=== PATIENT | female | born 1945 | race Caucasian/White ===

== ENCOUNTER 2017-07-24 14:33 | Outpatient (CLI) | payer MEDICARE | END 2017-07-24 14:34 | disposition home or self-care (01) | LOC: BICMAMMO 14:33 | PROVIDERS: ATTEND Family Medicine | DX: Z12.31 Encounter for screening mammogram for malignant neoplasm of breast (principal); R92.1 Mammographic calcification found on diagnostic imaging of breast | CPT/HCPCS: 77063; 77067 ==

== ENCOUNTER 2017-08-19 18:40 | Observation (INO) | payer MEDICARE, OTHER ==
[2017-08-19 19:44] LABS: #Basophils 0.1 thou/uL (0.0-0.2); #Eosinphils 0.1 thou/uL (0.0-0.7); #Lymphocytes 1.5 thou/uL (1.20-3.40); #Monocytes 0.6 thou/uL (0.11-0.59); #Neutrophils 3.5 thou/uL (1.40-6.50); %Basophils 1.4 % (0.0-1.0); %Eosinophils 2.4 % (0.0-10.0); %Lymphocytes 25.6 % (21.0-51.0); %Monocytes 9.8 % (0.0-10.0); %Neutrophils 60.8 % (42.0-75.0); Albumin 4.3 g/dL (3.4-4.8); Calcium 9.3 mg/dL (7.8-10.44); Chloride 103 mmol/L (98-107); Globulin 3.9 g/dL (2.4-3.5); Glucose 195 mg/dL (80-115); Hemoglobin 15.3 g/dL (12.0-16.0); Mean Corpuscular HGB CONC 34.6 g/dL (32.0-36.0); Mean Corpuscular Hemoglobin 32.3 pg (27.0-31.0); Mean Corpuscular Volume 93.5 fL (78.0-98.0); Mean Platelet Volume 7.8 fL (7.4-10.4); Platelet Count 174 thou/uL (130-400); Potassium 3.5 mmol/L (3.5-5.1); Protein, Total 8.2 g/dL (6.0-8.3); RBC Distribution Width 12.9 % (11.5-14.5); Red Blood Cell (RBC) Count 4.73 mill/uL (4.20-5.40); Sodium 140 mmol/L (136-145); White Blood Cell (WBC) Count 5.8 thou/uL (4.8-10.8)
[2017-08-19 19:45] LABS: Anion Gap 17 mmol/L (10-20); Bilirubin, Total 0.5 mg/dL (0.2-1.2); Carbon Dioxide 24 mmol/L (23-31)
[2017-08-19 19:46] LABS: Alkaline Phosphatase 72 U/L (40-150)
[2017-08-19 19:47] LABS: BUN (Urea Nitrogen) 13 mg/dL (9.8-20.1); Calc. Creatinine Clearance 0 mL/min (70-130); Estimated GFR-MDRD 64
[2017-08-19 19:48] LABS: AST (SGOT) 37 U/L (5-34)
[2017-08-19 19:49] LABS: ALT (SGPT) 33 U/L (8-55)
[2017-08-19 19:53] LABS: Troponin I Less than 0.010 ng/mL (< 0.028)
[2017-08-19 19:56] LABS: CK (CPK) 39 U/L (29-168)
--- NOTE | 2017-08-19 20:18 | CT ---
CT BRAIN NONCONTRAST: DATE: 08/19/17 TIME: 7:58 p.m. HISTORY: 72-year-old female with episode of expressive aphasia, now completely resolved. Dr. Jmaes discussed the findings and recommendation by telephone with Dr. Palomino at 8:06 p.m. on 08/19. COMPARISON: None. FINDINGS: There is an approximately 4 x 4 cm region of cerebral edema in the left frontal lobe laterally, just superior to the level of the anterior aspect of the Sylvian fissure. There is local effacement of sul ci in the region of this edema, but otherwise no mass effect elsewhere, and no midline shift. The nessa tricles are normal in size and configuration. No acute intra-axial or extra-axial hemorrhage. The dg varium is intact. The upper portions of the paranasal sinuses and the bilateral tympanomastoid caviti es are grossly clear. IMPRESSION: 1. Left frontal lobe intra-axial edema. This is favored to represent vasogenic edema (probably f rom a neoplasm and less commonly from cerebral infection). It is less likely to represent cytotoxic e wilman of an infarction. 2. Recommend MRI of the brain with and without contrast for further evaluation. Code MARBELLA JN R POS: [facility]
[2017-08-19 21:57] LABS: PTT 30.9 SEC (22.9-36.1)
--- NOTE | 2017-08-19 23:23 | PDOC.FPRHP ---
- History of Present Illness Chief Complaint: trouble finding words History of Present Illness: Resident: Lori Velasco DO PCP: Dr. Lynda Azar MD Patient is a 72yo F with PMH of HLD and recent elevated BP in the clinic presents to ED for expressive aphasia that happened at home after dinner around 1814. The patient reports she was sitting down at the table having a conversation with son and friend and all of the sudden wasn't able to find the words she wanted to say and instead her mouth just made sounds that didn't make sense. She knew what she wanted to say but could not find the words or even form the words. The event lasted maybe a couple of minutes and then resolved. There was no associated weakness, slurred speech, or facial asymmetry. She reports small episodes like this have happened in the past but were more confined to the ability to find the word to name an object. Never has she had jumbled sounds that didn't sound like words before. She has no hx of CAD or TIA /CVA. She has been recently worked up for HTN with at least 2 isolated elevated readings in the office. She has past history of HLD, in which she takes red yeast rice for. She has gained about 15lbs in the last 6 months due to lack of exercise. She reports recent URI sx but otherwise feels well. In the ED a CTbrain was performed which shows 4x4cm area of frontal lobe edema, suspicious for neoplasm vs infection. She denies mood changes, weakness, stiffened neck, vision changes. She recently had a mammogram done that showed Birads 2 and has never had colonoscopy. Upon arrival to the ED, no sx were noticed, although during my interview, patient did have about a 30sec-1min time of the above described expressive aphasia. ED Course: She did not receive any meds in the ED. - Allergies/Adverse Reactions Allergies Allergy/AdvReac Type Severity Reaction Status Date / Time No Known Drug Allergies Allergy Verified 08/19/17 23:31 - Home Medications Medication Instructions Recorded Confirmed Type Dexamethasone [Decadron] 4 mg PO BID #60 tab 08/20/17 Rx - History PMHx: HLD Tobacco Abuse Elevated BP without the diagnosis of HTN PSHx: none FHx: father CVA at age 80, mother CVA at age 95 Social: Drinks socially about 1 glass of scotch 3x/week, smokes 1-2ppd for the last 50years, denies drug use. - Review of Systems General: reports: weight/appetite/sleep changes (weight gain of 15lbs). denies : fever/chills Eyes: denies: eye pain, vision changes ENT: denies: nasal congestion, rhinorrhea Respiratory: reports: cough. denies: congestion, shortness of breath, exercise intolerance Cardiovascular: denies: chest pain, palpitation, edema Gastrointestinal: denies: nausea, vomiting, diarrhea, constipation, abdominal pain Genitourinary: denies: incontinence, dysuria Skin: denies: rashes, lesions Musculoskeletal: denies: pain, tenderness Neurological: denies: numbness, syncope Psychological: denies: anxiety, depression - Vital signs BP: 145/63 HR: 94 RR: 22 Tmax: 98.7 Pox: 95% on RA Wt: 79kg - Physical Exam Constitutional: NAD, awake, alert and oriented, well developed HEENT: normocephalic and atraumatic, PERRLA, EOMI, conjunctiva clear, no scleral icterus, grossly normal vision, TM's clear and intact, grossly normal hearing, normal nasal mucosa, MMM, oropharynx clear, good dention Neck: supple, FROM, trachea midline, no bruits -Neck: enlarged R anterior lymphnode, no nuchal rigidity Heart: normal S1/S2, no murmurs/rubs/gallops -Heart: tachycardic Lungs: CTAB, no respiratory distress, no wheezing -Lungs: distant lung sounds throughout, poor respiratory effort Abdomen: soft, non-tender, bowel sounds present Musculoskeletal: normal structure, normal tone, ROM grossly normal Neurological: no focal deficit, CN II-XII intact, normal sensation, DTRs 2+ -Neurological: no dysdiadochokinesia Skin: no rash/lesions, capillary refill <2 seconds Heme/Lymphatic: no unusual bruising or bleeding Psychiatric: normal mood and affect, intact recent and remote memory FMR H&P: Results - Labs Result Diagrams: 08/19/17 19:20 08/19/17 19:20 Lab results: WBC 5.8 thou/uL (4.8-10.8) 08/19/17 19:20 Hgb 15.3 g/dL (12.0-16.0) 08/19/17 19:20 Hct 44.3 % (36.0-47.0) 08/19/17 19:20 MCV 93.5 fL (78.0-98.0) 08/19/17 19:20 Plt Count 174 thou/uL (130-400) 08/19/17 19:20 Neutrophils % 60.8 % (42.0-75.0) 08/19/17 19:20 Sodium 140 mmol/L (136-145) 08/19/17 19:20 Potassium 3.5 mmol/L (3.5-5.1) 08/19/17 19:20 Chloride 103 mmol/L (98-107) 08/19/17 19:20 Carbon Dioxide 24 mmol/L (23-31) 08/19/17 19:20 BUN 13 mg/dL (9.8-20.1) 08/19/17 19:20 Creatinine 0.88 mg/dL (0.6-1.1) 08/19/17 19:20 Glucose 195 mg/dL (80-115) H 08/19/17 19:20 Calcium 9.3 mg/dL (7.8-10.44) 08/19/17 19:20 Total Bilirubin 0.5 mg/dL (0.2-1.2) 08/19/17 19:20 AST 37 U/L (5-34) H 08/19/17 19:20 ALT 33 U/L (8-55) 08/19/17 19:20 Alkaline Phosphatase 72 U/L (40-150) 08/19/17 19:20 Creatine Kinase 39 U/L (29-168) 08/19/17 19:20 CK-MB (CK-2) 1.0 ng/mL (0-6.6) 08/19/17 19:20 Serum Total Protein 8.2 g/dL (6.0-8.3) 08/19/17 19:20 Albumin 4.3 g/dL (3.4-4.8) 08/19/17 19:20 - EKG Interpretation EKG: partial RBBB, sinus tachycardia with rate of 105 - Radiology Interpretation CT scan - head Status: image reviewed by me, report reviewed by me Additional comment: 4x4 area of frontal lobe edema, abscess vs malignancy FMR H&P: A/P - Problem List (1) Abnormal finding on CT scan Status: Acute Code(s): R93.8 - ABNORMAL FINDINGS ON DIAGNOSTIC IMAGING OF BODY STRUCTURES (2) Expressive aphasia Status: Acute Code(s): R47.01 - APHASIA (3) Hyperlipidemia Status: Acute Code(s): E78.5 - HYPERLIPIDEMIA, UNSPECIFIED (4) Elevated glucose Status: Acute Code(s): R73.09 - OTHER ABNORMAL GLUCOSE (5) Tobacco abuse Status: Acute Code(s): Z72.0 - TOBACCO USE (6) Hypertension Status: Acute Code(s): I10 - ESSENTIAL (PRIMARY) HYPERTENSION - Plan Abnormal Finding on CT - per radiologist read is highly suspicious of malignancy vs an infectious etiology such as abscess. Patient has no s/sx of infection. Patient has had negative recent mammogram, but no colonoscopy. - MRI brain to further qualify Broca's Aphasia - likely caused by finding on CT, but could be TIA with multiple risk factors including obesity, HLD (untreated), HTN, and tobacco use. - allow for permissive HTN for 24h - NIH/neuro checks - CTA of head and neck - Risk stratify with FLP, A1c, TSH Elevated Blood Glucose - A1c as above HTN - new diagnosis, this is the third isolated reading of elevated pressures. - will allow for permissive HTN for 24h, but then will likely need to start medication for control Lymphadenopathy - R neck lymph node probably measuring about 2-3cm in diameter - soft tissue neck u/s pending in light of above CT finding HLD - FLP pending - will calculate ASCVD risk at that time, likely will need statin Tobacco Abuse - 50-100 pack year hx - encourage cessation - provide nicotine patch prn VTE PPx: SCD Code Status: Full Dispo: <48h FMR H&P: Upper Level - Pertinent history PCP: Dr. Azar Pt is a very pleasant 72 yo F with hx of hld and recent dx of htn who presents to ED with 1 day hx of difficulty with word finding. She states that she can think of what she wants to say but at times stutters, cannot form words properly. She has no cardiac hx or hx of CVA. Family hx of CVA in her father in his 80s, mother lived to be 95. Also endorse cough and exposure to her grandchildren who have had a cold. Endorses intermittent RUQ pain that she discussed with Dr. Azar but it has not been worked up yet. Also endorses recent failure of her vision screen at the [facility], has yet to see optometry. Denies fever, chills, weight loss, meningeal signs, difficulty walking, changes in mood/personality, changes in bowel/bladder habits, incontinence. Also endorses recently had a mammogram, results not known. Has never had a colonoscopy. Denies bowel symptoms. - Pertinent findings General: AOx3, overweight, no distress HEENT: TMs pearly diaz, EOMI, PERRL, no exudate, large R submandibular lymph node Cards: RRR Lungs: CTA Abdomen: no TTP, normoactive bs neuro: CN II-XII intact, normal finger to nose, normal sensation, hyporeflexive 1+ but patient tensing, patellar, brachial - Plan Date/Time: 08/19/17 1368 I, Lauren Washington, have evaluated this patient and agree with findings/plan as outlined by Dr. Velasco. Pertinent changes/additions are listed here. 1. 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 Cannot r/o brain abscess w/o MRI though seems less likely given lack of illness symptoms, fever, WBC. MRI in AM. More likely related to a tumor, primary or met. Recent mammogram BIRADS 2, no hx of colonoscopy. Will allow permissive htn for 24 hrs as cannot r/o CVA/TIA. Neuro checks q 4 hrs. Risk stratify with labs CBC, CMP, Mg, Phos, TSH, A1c. Give asa. 2. RUQ pain- could order u/s, not urgent could be done outpatient 3. htn-will need to start agents after period of permissive htn 4. hld-takes red yeast rice, likely will need to switch to statin Attending Addendum - Attending Addendum Date/Time: 08/20/17 1030 I personally evaluated the patient and discussed the management with Dr. Velasco/ Felix. I agree with the History, Examination, Assessment and Plan documented above with any addition or exceptions noted below.
[2017-08-19] MEDS ORDERED: Acetaminophen 325 MG TAB PO PRN (23:36)
[2017-08-19] MEDS ORDERED: Ondansetron HCl/PF 4 MG/2 ML Vial IVP PRN (23:36)
[2017-08-19] MEDS ORDERED: Ondansetron ODT 4 MG TAB SL PRN (23:36)
[2017-08-19 23:45] LABS: Troponin I Less than 0.010 ng/mL (< 0.028)
[2017-08-20 00:06] VITALS: BMI 27.6
[2017-08-20] MEDS ORDERED: Acetaminophen 325 MG TAB PO PRN (00:08)
[2017-08-20] MEDS ORDERED: Nicotine 14 MG PATCH TD PRN (00:08)
[2017-08-20] MEDS ORDERED: Docusate 100 MG CAP PO PRN (00:08)
[2017-08-20] MEDS ORDERED: Ondansetron ODT 4 MG TAB PO PRN (00:08)
[2017-08-20] MEDS ORDERED: hydrALAZINE 20 MG/ML VIAL SLOW IVP PRN (01:22)
--- NOTE | 2017-08-20 04:30 | PDOC.EVN ---
Event Note - Event Note Event Note: Date/Time: 08/20/17 0427 I personally evaluated the patient and discussed the management with Dr. Velasco. I agree with the History, Examination, Assessment and Plan. See H&P. COPD vs Asthma vs environemtnal inflammaotry response. Eosinophilia suggests allergy exposure mediated etiology. Will discuss with pulmonology.
[2017-08-20 05:20] LABS: Hemoglobin A1c 5.6 % (4.0-6.0)
[2017-08-20 05:37] LABS: Cardiac Risk 4.7 (Less than 4.5)
[2017-08-20] MEDS ORDERED: Aspirin 81 mg Enteric Coated Tablet PO SCH (09:00)
--- NOTE | 2017-08-20 09:06 | PDOC.FM ---
- Subjective Subjective: Ms. Wheeler is feeling well this morning. She has an appetite. She denies any concerns for new focal findings or weakness, vision changes or further word finding difficulty apart from episode with Dr. Velasco present. - Objective MAR Reviewed: Yes Vital Signs & Weight: Vital Signs (12 hours) Temp Pulse Resp BP Pulse Ox 08/20/17 07:46 98.4 F 77 16 154/71 H 97 08/20/17 03:54 99.1 F 86 20 169/79 H 92 L 08/20/17 00:00 97.8 F 91 20 166/88 H 93 L 08/19/17 23:40 97.8 F 91 20 Weight Weight 77.655 kg I&O: 08/19/17 08/20/17 08/21/17 06:59 06:59 06:59 Intake Total 700 Balance 700 Result Diagrams: 08/19/17 19:20 08/19/17 19:20 EKG Reviewed by me: Yes Radiology Reviewed by me: Yes Phys Exam - Physical Examination Constitutional: NAD HEENT: moist MMs, sclera anicteric Neck: supple palpable LN on R anterior cervical chain Respiratory: no wheezing, clear to auscultation bilateral Cardiovascular: RRR, no significant murmur Gastrointestinal: soft, non-tender, positive bowel sounds Musculoskeletal: no edema Neurological: non-focal, moves all [address] Psychiatric: normal affect, A&O x 3 Skin: normal turgor Dx/Plan (1) Abnormal finding on CT scan Code(s): R93.8 - ABNORMAL FINDINGS ON DIAGNOSTIC IMAGING OF BODY STRUCTURES Status: Acute (2) Elevated glucose Code(s): R73.09 - OTHER ABNORMAL GLUCOSE Status: Acute (3) Expressive aphasia Code(s): R47.01 - APHASIA Status: Acute (4) Hyperlipidemia Code(s): E78.5 - HYPERLIPIDEMIA, UNSPECIFIED Status: Acute (5) Hypertension Code(s): I10 - ESSENTIAL (PRIMARY) HYPERTENSION Status: Acute (6) Tobacco abuse Code(s): Z72.0 - TOBACCO USE Status: Acute - Plan Plan: Abnormal Finding on CT 1. Per radiologist read is highly suspicious of malignancy vs an infectious etiology such as abscess. Patient has no s/sx of infection. Patient has had negative recent mammogram, but no colonoscopy. - MRI brain to further qualify - Dr. Miranda consulted 2. Broca's Aphasia - likely related to finding on CT, but could be TIA with multiple risk factors including obesity, HLD (untreated), HTN, and tobacco use. - allow for permissive HTN for 24h - NIH/neuro checks - CTA of head and neck - Risk stratify with FLP, A1c, TSH 3. Elevated Blood Glucose - A1c 5.6 4. HTN - new diagnosis, this is the third isolated reading of elevated pressures. - will allow for permissive HTN for 24h, but then will likely need to start medication for control 5. Lymphadenopathy - R neck lymph node probably measuring about 2-3cm in diameter - soft tissue neck u/s pending in light of above CT finding 6. HLD - ASCVD risk > 10%, recommend moderate to high intensity statin 7. Tobacco Abuse - 50-100 pack year hx - encourage cessation - provide nicotine patch prn VTE PPx: SCD Code Status: Full
[2017-08-20] MEDS ORDERED: Lorazepam 2 MG/ML VIAL ONE (09:39)
[2017-08-20] MEDS ORDERED: Lorazepam 2 MG/ML VIAL SLOW IVP SCH (10:15)
[2017-08-20] MEDS ORDERED: Iopamidol 370 76% 100 ML VIAL ONE (10:58)
[2017-08-20] MEDS ORDERED: Gadobenate Dimeglumine 529 MG/1 ML (20ML VIAL) ONE (11:27)
--- NOTE | 2017-08-20 11:54 | MRI ---
BRAIN MRI WITH AND WITHOUT CONTRAST: Date: 08-20-17 Comparison: None. History: Head CT performed 08-19-17 demonstrates left frontal lobe lesion. Technique: Multiplanar, multisequence MR imaging of the brain obtained with and without contrast. FINDINGS: Diffusion weighted imaging demonstrates no evidence for acute infarction. The axial gradient echo adrian ging demonstrates no evidence for intracranial hemorrhage. There is a prominent left frontal lobe intraaxial lesion with coarse internal enhancement as well as prominent peripheral rim enhancement which measures in the 2.1 x 2.4 cm range. There is significant s urrounding vasogenic edema. There is an additional satellite rim enhancing lesion posterior to this, also within the left frontal lobe measuring 8 mm with associated surrounding vasogenic edema. In emely tion, there is a lesion within the posterior aspect of the centrum semiovale on the right measuring 1 .2 cm with rim enhancement and surrounding vasogenic edema. There is minimal right to left midline sh ift measuring in the 2 mm range at the level of the septum pellucidum. No additional enhancing lesions are identified within the left cerebral hemisphere. No enhancing lesions are identified within the posterior fossa, brain stem, or right cerebral hemisph ere. The area of vasogenic edema surrounding the two adjacent anterolateral right frontal lobe lesions jan sures 4.3 x 4.6 cm in the area of vasogenic edema associated with the lesion within the posterior asp ect of the left posterior centrum semiovale measures in the 1.8 cm range. IMPRESSION: 1. Multiple intraaxial lesions are noted, highly suspicious for intraaxial intracranial metastatic di sease. POS: [facility]
--- NOTE | 2017-08-20 13:49 | CT ---
CT ANGIOGRAM OF THE HEAD CT ANGIOGRAM OF THE NECK: Date: 08-20-17 Comparison: None. History: Possible transient ischemic attack, intracranial lesions on recent brain MRI, memory problem s. Technique: Serial axial CT imaging obtained at 5 mm intervals through the head without contrast. Subs equently, axial CT imaging at 1.25 mm intervals from lung apices through vertex with IV contrast usin g a CT angiogram protocol. Coronal and sagittal 3D reformatted imaging obtained. FINDINGS: Noncontrast enhanced head CT demonstrates focal areas of vasogenic edema in the left centrum semioval e and the inferior lateral aspect of the left frontal lobe, associated with enhancing intracranial ma ss lesions seen on brain MRI, also performed 08-20-17. No intracranial hemorrhage is noted. There is m ild midline shift from left to right measuring in the 2 mm range. Imaged paranasal sinuses/mastoid ai r cells are well aerated. CT ANGIOGRAM NECK: The visualized lung apices are unremarkable aside from subpleural emphysematous change within superio r segment of bilateral lower lobes. The retroantral and the parapharyngeal fat appears clear bilaterally. The parotid glands and submandi bular glands appear grossly unremarkable. The tonsillar pillars, epiglottis and preepiglottic fat, hy oid bone, thyroid cartilage, cricoid cartilage, thyroid gland and level of the glottis appear grossly unremarkable. There is mild atherosclerotic calcification at the origin of the left common carotid artery and the l eft subclavian artery. There is no hemodynamically significant stenosis at the origin of the innomina te artery, right subclavian artery, right common carotid artery, left common carotid artery or left s ubclavian artery. Bilateral vertebral artery origins appear unremarkable. Bilateral vertebral arterie s are patent and demonstrate normal course and caliber. There is mild partially calcified plaque at the origin of bilateral internal carotid arteries with no hemodynamically significant stenosis appreciated within the carotid system on either side. Osseous structures of the neck demonstrate no worrisome lytic or blastic lesions. No discrete lymphadenopathy is apparent within the neck. Mildly prominent nonenlarged bilateral level [address] ANGIOGRAM HEAD: Distal vertebral arteries are unremarkable. The basilar artery and its branches are patent. There is no sacular aneurysm, high grade stenosis, or vascular occlusion involving the posterior circulation. There is cavernous carotid atherosclerotic calcification bilaterally. Bilateral A1 segments are paten t. Region of the anterior communicating artery appears unremarkable as do bilateral distal MARIA L branch es. The M1 segment is patent. The MCA bifurcation is unremarkable. Distal MCA branches are unremarkable. Rim enhancing intraaxial lesions are noted on the left, including the posterior left centrum semioval e measuring 1.2 cm, the posterolateral aspect of the left frontal lobe on image 256 measuring 2.1 cm, and a smaller adjacent satellite lesion in left frontal lobe measuring in the 8 mm range. IMPRESSION: 1. Evidence of intracranial metastatic disease. No evidence for arterial occlusion or hemodynamically significant stenosis within the head or neck. POS: [facility]
[2017-08-20 15:29] VITALS: TEMP 98.5
--- NOTE | 2017-08-20 17:15 | RAD ---
TWO VIEWS OF THE CHEST: 08/20/17 COMPARISON: None. HISTORY: Cough. FINDINGS: No pneumothorax, pleural fluid, focal consolidation, or alveolar edema. There is atherosclerotic calc ification of the aortic arch. There is anterior wedging of the T7 vertebral body suggesting an age indeterminate fracture. IMPRESSION: Age indeterminate mid thoracic spine fracture. No focal consolidation or alveolar edema. POS: [facility]
[2017-08-20] MEDS ORDERED: Dexamethasone 4 MG TAB PO SCH (21:00)
--- NOTE | 2017-08-21 01:24 | CON ---
DATE OF CONSULTATION: 08/20/2017 CONSULTING PHYSICIAN: [facility] Service. IMPRESSION: 1. Transient expressive aphasia secondary to 4 x 4 metastatic lesion in the left frontoparietal lobe . 2. Second 1.8 cm lesion in the left parasagittal region. 3. Recent history of possible abnormal mammogram. 4. Tobacco use. PLAN: 1. Chest x-ray. 2. Decadron 4 mg twice a day. 3. Follow up with Oncology and Radiation Oncology. HISTORY OF PRESENT ILLNESS: Ms. Wheeler is a 72-year-old white female moved here from [place] about 6 months ago. She had an episode of transient expressive aphasia that lasted a matter of minutes. There was no associated seizure-like activity, lateralized weakness or numbness. She came into the e mergency room and had a CT done. This suggested an area of hypointensity in the left frontal lobe. MRI of the brain confirmed ring-enhancing lesion with surrounding vasogenic edema in the left frontal region, as well as a smaller lesion. Her vascular evaluation was unremarkable for any stenosis. Adali mcmahon has not been having any headache, nausea, vomiting, vertigo, chest pain, shortness of breath, weigh t loss, fevers, chills, or night sweats. PAST MEDICAL HISTORY: Otherwise negative. ALLERGIES: None. SOCIAL HISTORY: Positive for tobacco. FAMILY HISTORY: Noncontributory. REVIEW OF SYSTEMS: Otherwise negative. PHYSICAL EXAMINATION: GENERAL: She is a healthy appearing woman sitting at the bedside in no distress. VITAL SIGNS: Pulse 70, respirations 16. HEENT: Unremarkable. NEUROLOGIC: She is alert and appropriate. Her speech is fluent and clear. Her exam is nonfocal. N o abnormal movements were seen. EKG shows normal sinus rhythm. SUMMARY: This unfortunate 72-year-old woman appears to have metastatic disease breast or lung. She can get her workup completed and referred over to Oncology for further treatment and determine whether a biopsy is necessary.
[2017-08-21 09:43] VITALS: BP 142/75
--- NOTE | 2017-08-21 11:48 | DIS-2 ---
DATE OF ADMISSION: 08/19/2017 DATE OF DISCHARGE: 08/20/2017 RESIDENT: Carina Head M.D. ADMITTING ATTENDING: Mikel Keen M.D. DISCHARGE ATTENDING: Marquise Hogan M.D. CONSULTS: Dr. Miranda with Neurology. PROCEDURES: 1. Brain CT from the CCU (08/19/2017). Left frontal lobe intractable edema, vasogenic edema, probab ly from neoplasm or chronic residual infection. Less likely to represent edema of infection. Recomm end MRI of the brain with and without contrast for further evaluation. 2. Brain MRI (08/20/2017). Multiple intraaxial lesions are noted. Has suspicion for intractable in tracranial metastatic disease. 3. CT angiography (08/20/2017): Evidence of intracranial metastatic disease. No evidence for arter ial occlusion or hemodynamically significant stenosis within the head or neck. 4. Chest x-ray (08/20/2017): Indeterminate lumbar spine fracture. No focal consolidation or alveol ar edema. PRIMARY DIAGNOSIS: Likely metastatic brain lesions. SECONDARY DIAGNOSES: 1. Elevated blood glucose. 2. Hypertension. 3. Lymphadenopathy. 4. Hyperlipidemia. 5. Tobacco abuse. DISCHARGE MEDICATIONS: Decadron 4 mg p.o. b.i.d. HISTORY OF PRESENT ILLNESS AND HOSPITAL COURSE: Ms. Wheeler presented to our ER with complaint of no t being able to find words, a second episode within the last week. The first episode was unwitnessed and she reports she did not tell anyone about it because she did not think anything would come of it , but then the second episode was witnessed by her [id number] who encouraged her to come to the ER. At that time edema was noted on CT and she was admitted for further workup as well as a rule out . Further imaging showed likely metastatic lesions to the brain. She was also found to have a right palpable lymph node in the anterior cervical chain. Dr. Miranda with Neurology was consulted and re commended starting Decadron as well as further neurosurgical and Oncology workup outpatient. The pat ient also had a chest x-ray prior to discharge that showed an age indeterminate lumbar spine also wed ge fracture. At this time, she is asymptomatic; however, should follow this up outpatient with her P CP. DISPOSITION: Stable. DISCHARGE INSTRUCTIONS: 1. Location: Home. 2. Diet: Heart healthy. 3. Activity: As tolerated. 4. Followup: Follow up with Dr. Azar, the patient's PCP within 1 week of discharge as well as Dr. Miranda. The patient is to also have appropriate oncology and neurosurgical follow up arranged outpa tient.
== END 2017-08-20 18:17 | disposition home or self-care (01) ==
LOC: ERS 18:40 → 2SE 22:00
PROVIDERS: ADMIT Family Medicine; ATTEND Family Medicine
DX: G93.6 Cerebral edema (principal); G93.9 Disorder of brain, unspecified; E78.5 Hyperlipidemia, unspecified; F17.210 Nicotine dependence, cigarettes, uncomplicated; R93.8 Abnormal findings on diagnostic imaging of other specified body structures; I10 Essential (primary) hypertension; R59.0 Localized enlarged lymph nodes; Z79.899 Other long term (current) drug therapy
CPT/HCPCS: 70450; 70496; 70498; 70553; 71046; 80053; 80061; 82550; 82553; 83036; 84443; 84484 ×2; 85025; 85610; 85730; 93005; 93306; 94760; 97116; 97139 ×2; 99285; 99406; G0378; G8978; G8979; G8980; G8987; G8988; G8989; 36415; J2060; J8540

== ENCOUNTER 2017-09-07 10:11 | Outpatient (CLI) | payer MEDICARE ==
[2017-09-07 11:27] LABS: Hemoglobin 15.6 g/dL (12.0-16.0); Mean Corpuscular HGB CONC 33.7 g/dL (32.0-36.0); Mean Corpuscular Hemoglobin 31.8 pg (27.0-31.0); Mean Corpuscular Volume 94.6 fL (78.0-98.0); Mean Platelet Volume 7.8 fL (7.4-10.4); Platelet Count 186 thou/uL (130-400); RBC Distribution Width 12.8 % (11.5-14.5); Red Blood Cell (RBC) Count 4.91 mill/uL (4.20-5.40); White Blood Cell (WBC) Count 12.2 thou/uL (4.8-10.8)
[2017-09-07 11:57] LABS: Anion Gap 17 mmol/L (10-20); BUN (Urea Nitrogen) 20 mg/dL (9.8-20.1); Calc. Creatinine Clearance 0 mL/min (70-130); Calcium 9.6 mg/dL (7.8-10.44); Carbon Dioxide 23 mmol/L (23-31); Chloride 102 mmol/L (98-107); Estimated GFR-MDRD 87; Glucose 123 mg/dL (80-115); Potassium 4.7 mmol/L (3.5-5.1); Sodium 137 mmol/L (136-145)
--- NOTE | 2017-09-08 12:35 | EKG ---
Test Reason : Blood Pressure : / mmHG Vent. Rate : 069 BPM Atrial Rate : 069 BPM P-R Int : 140 ms QRS Dur : 106 ms QT Int : 386 ms P-R-T Axes : 079 089 075 degrees QTc Int : 413 ms Normal sinus rhythm Incomplete right bundle branch block Abnormal ECG Confirmed by PRASHANTH RODRÍGUEZ ([id number]) on 09/08/2017 12:35:15 PM Referred By: CLAUS Confirmed By:PRASHANTH RODRÍGUEZ
== END 2017-09-07 10:12 | disposition home or self-care (01) ==
LOC: LABBT 10:11
PROVIDERS: ATTEND Neurological Surgery
DX: Z01.818 Encounter for other preprocedural examination (principal); D49.6 Neoplasm of unspecified behavior of brain
CPT/HCPCS: 80048; 85027; 93005; 93010

== ENCOUNTER 2017-09-15 05:52 | Inpatient (IN) | payer MEDICARE ==
[2017-09-15] MEDS ORDERED: CEFAZOLIN/Water 2 GM/20 ML SYRINGE ONE (06:13)
[2017-09-15] MEDS ORDERED: Bacitracin Zinc Ointment 30 gm TUBE ONE (06:39)
[2017-09-15] MEDS ORDERED: Dexmedetomidine 200 MCG/2 ML VIAL ONE (07:23)
--- NOTE | 2017-09-15 07:38 | PRG ---
DATE OF SERVICE: 09/15/2017 I visited with Ms. Gutierrez and her sister in preop. I discussed the indications, risks, benefits and alternatives of the stereotactic brain biopsy. All questions were answered and they wish to proceed.
[2017-09-15] MEDS ORDERED: Fentanyl 100 MCG/2 ML VIAL ONE ×2 (08:13→09:52)
[2017-09-15] MEDS ORDERED: Ondansetron HCl/PF 4 MG/2 ML Vial IVP PRN ×2 (09:40→14:09)
[2017-09-15] MEDS ORDERED: Promethazine HCl 25 MG/ML VIAL SLOW IVP PRN (09:40)
[2017-09-15] MEDS ORDERED: Promethazine HCl 25 MG/ML VIAL IM PRN ×2 (09:40→14:09)
--- NOTE | 2017-09-15 10:12 | OP ---
DATE OF PROCEDURE: 09/15/2017 SURGEON: Nicko Quiroz M.D. FUR REPAIRER: Kavita Peters PA-C PROCEDURE PERFORMED: Stereotactic intracranial guided brain biopsy. PROCEDURE IN DETAIL: The patient was brought into the operating room, intubated. She was positioned in the supine position with the head fixed in neutral position in a lu product safety head. The [employer] system was then brought into the field and registered appropriately. A left frontal incision w as made and a anibal hole placed. Using the stereotactic navigation system, we planned a trajectory an d a biopsy and then appropriately used the VarioGuide navigation arm to pass the stereotactic needle into the lesion. We sent three specimens and appear pathologic. The frozen section diagnosis sugges ivana pathologic tissue, although it was largely acellular with necrosis, although there were some atyp ical cells. We therefore withdrew the needle approximately 0.5 cm and sent three additional biopsies , which also appeared pathologic for permanent section. No bleeding was witnessed through the needle and after irrigation, the needle was removed. The brain was irrigated and closed in anatomic layers .
[2017-09-15] MEDS ORDERED: ePHEDrine/0.9% NaCl/PF SYRINGE 50 mg/10 ml ONE (12:21)
[2017-09-15] MEDS ORDERED: PROPOFOL 200 MG/20 ML VIAL ONE (12:21)
[2017-09-15] MEDS ORDERED: PHENYLEPHRINE-NS 100 MCG/ML 10 ML SYRINGE ONE (12:21)
[2017-09-15] MEDS ORDERED: Lidocaine 1% PF 5 ML VIAL ONE (12:21)
[2017-09-15] MEDS ORDERED: Glycopyrrolate 0.2 MG/ML 5 ML SYRINGE ONE (12:21)
[2017-09-15] MEDS ORDERED: Dexamethasone 20 MG/5 ML VIAL ONE (12:21)
[2017-09-15] MEDS ORDERED: Labetalol 100 MG/20 ML MDV ONE (12:21)
[2017-09-15 13:56] VITALS: BMI 27.6
[2017-09-15] MEDS ORDERED: Mag-Al 1200 mg/1200 mg/30 ML UDCUP PO PRN (14:09)
[2017-09-15] MEDS ORDERED: Promethazine HCl 25 MG SUPP PR PRN (14:09)
[2017-09-15] MEDS ORDERED: hydrALAZINE 20 MG/ML VIAL SLOW IVP PRN (14:09)
[2017-09-15] MEDS ORDERED: diphenhydrAMINE 50 MG/ML VIAL IVP PRN (14:09)
[2017-09-15] MEDS ORDERED: Promethazine 25 MG TAB PO PRN (14:09)
[2017-09-15] MEDS ORDERED: diphenhydrAMINE 50 MG CAP PO PRN (14:09)
[2017-09-15] MEDS ORDERED: Acetaminophen 325 MG TAB PO PRN (14:09)
[2017-09-15] MEDS ORDERED: Labetalol HCl 100 MG/20 ML VIAL SLOW IVP PRN (14:09)
[2017-09-15] MEDS ORDERED: Morphine 4 MG/ML VIAL IV PRN (14:14)
[2017-09-15] MEDS ORDERED: HYDROcodone/Acetaminophen 10/325 mg Tablet PO PRN ×2 (14:16)
[2017-09-15] MEDS: Sodium Chloride 0.9% 1,000 ML IV SCH (15:06)
[2017-09-15] MEDS: CEFAZOLIN/Water 2 GM/20 ML SYRINGE SLOW IVP SCH ×2 (15:09→22:26)
[2017-09-15] MEDS ORDERED: Famotidine/PF 20 mg/2ml Vial SLOW IVP SCH (21:00)
[2017-09-16] MEDS: Sodium Chloride 0.9% 1,000 ML IV SCH (06:18)
[2017-09-16 08:22] VITALS: BP 127/68; TEMP 98
--- NOTE | 2017-09-16 10:22 | CT ---
PRELIMINARY REPORT/[facility]/EMERGENTY AFTER-HOURS PROCEDURE CT Head Without Intravenous Contrast CLINICAL HISTORY: 72 years old, female; Screening exam; Prior surgery; Surgery date: Post-operative (0-2 days); Patient HX: S/P craniotomy TECHNIQUE: Axial computed tomography images of the head/brain without intravenous contrast. COMPARISON: No relevant prior studies available. FINDINGS: Brain: 14 mm lesion with probable surrounding vasogenic edema high left parietal lobe consistent with mass vs abscess. No hemorrhage. Ventricles: No acute findings. No ventriculomegaly. Bones/joints: Small left posterior frontal craniotomy defect with underlying pneumocephalus white mat ter changes. No acute fracture. Soft tissues: Serpiginous foci of air, left temporalis muscle region, likely related to vascular acce ss / injected air in vessels. Sinuses: Unremarkable as visualized. No acute sinusitis. Mastoid air cells: Unremarkable as visualized. No mastoid effusion. IMPRESSION: No acute stroke, bleed, or hydrocephalus. 14 mm lesion with probable surrounding vasogenic edema high left parietal lobe consistent with mass v s abscess Small left posterior frontal craniotomy defect with underlying pneumocephalus white matter changes. Correlate with recent priors, not currently available. Thank you for allowing us to participate in the care of your patient. Dictated and Authenticated by: Anthony Sheth MD 09/16/2017 5:46 AM Central Time ([place] & [place]) FINAL REPORT HEAD CT NONCONTRAST: Date: 09/16/17 FINDINGS/IMPRESSION: I agree with the above provided preliminary interpretation from [facility]. There is postoperative change with underlying mixed density and air at the left frontal lobe. There i s a peripherally hyperdense, centrally hypodense lesion of the left centrum semiovale, as was depicte d on recent Brain MRI. Correlate with the patient's previous biopsy results. POS: [facility]
== END 2017-09-16 10:06 | disposition home or self-care (01) | DRG 72 ==
LOC: SDC 05:52 → SURG B 13:38 → EDSTATUS 17:00
PROVIDERS: ADMIT Neurological Surgery; ATTEND Neurological Surgery
PROC: 00B73ZX Excision of Cerebral Hemisphere, Percutaneous Approach, Diagnostic (ICD-10-PCS; principal; 2017-09-15)
DX: G93.89 Other specified disorders of brain (principal); R47.89 Other speech disturbances; F17.210 Nicotine dependence, cigarettes, uncomplicated
CPT/HCPCS: 70450; 88307; 88313; 88331; J1100; J2001; J2704; J3010; S0028

== ENCOUNTER 2017-09-21 22:19 | Observation (INO) | payer MEDICARE ==
[2017-09-21 23:24] LABS: #Eosinphils 0.1 thou/uL (0.0-0.7); #Lymphocytes 1.2 thou/uL (1.20-3.40); #Monocytes 0.6 thou/uL (0.11-0.59); %Basophils 0.7 % (0.0-1.0); %Monocytes 9.6 % (0.0-10.0); %Neutrophils 67.7 % (42.0-75.0); Hemoglobin 14.3 g/dL (12.0-16.0); Mean Corpuscular HGB CONC 34.1 g/dL (32.0-36.0); Mean Corpuscular Hemoglobin 31.6 pg (27.0-31.0); Mean Corpuscular Volume 92.8 fL (78.0-98.0); Mean Platelet Volume 6.8 fL (7.4-10.4); Platelet Count 241 thou/uL (130-400); RBC Distribution Width 12.4 % (11.5-14.5); Red Blood Cell (RBC) Count 4.53 mill/uL (4.20-5.40)
[2017-09-21 23:43] LABS: ALT (SGPT) 27 U/L (8-55); AST (SGOT) 24 U/L (5-34); Alkaline Phosphatase 65 U/L (40-150); Anion Gap 14 mmol/L (10-20); BUN (Urea Nitrogen) 16 mg/dL (9.8-20.1); Bilirubin, Total 0.5 mg/dL (0.2-1.2); CK (CPK) 29 U/L (29-168); Calc. Creatinine Clearance 0 mL/min (70-130); Carbon Dioxide 26 mmol/L (23-31); Chloride 104 mmol/L (98-107); Estimated GFR-MDRD 79; Glucose 189 mg/dL (80-115); Lipase 35 U/L (8-78); Potassium 3.9 mmol/L (3.5-5.1); Sodium 140 mmol/L (136-145)
[2017-09-21 23:48] LABS: CKMB 0.5 ng/mL (0-6.6); Troponin I Less than 0.010 ng/mL (< 0.028)
--- NOTE | 2017-09-22 01:48 | CT ---
HEAD CT WITHOUT CONTRAST: HISTORY: Recent brain biopsy. Altered mental status. COMPARISON: 09/16/2017 FINDINGS: There is a bur hole defect along the left frontal bone. The previously noted pneumocephalus has reso lved; however, there appears to be increasing edema involving the left frontal lobe with loss of diaz white matter differentiation, as well as sulcal effacement. Additionally, there is a second lesion that is involving the left centrum semiovale, which is unchanged. There is 3.4 mm of left to right subfalcine herniation. Previously, the degree of subfalcine herniation was similar. There is some m ass effect upon the left lateral ventricle, which has developed since the previous exam. No parenchymal hemorrhage or extraaxial hematoma. No significant sinus opacification. IMPRESSION: 1. Worsening edema involving the left frontal lobe. Findings may be due to progression of tumor or possibly iatrogenic change. 2. Stable left to right subfalcine herniation. POS: [facility]
[2017-09-22] MEDS ORDERED: HYDROcodone/Acetaminophen 7.5/325 mg Tablet PO PRN (05:15)
[2017-09-22] MEDS ORDERED: Ondansetron ODT 4 MG TAB PO PRN (05:15)
[2017-09-22] MEDS ORDERED: Acetaminophen 325 MG TAB PO PRN (05:15)
[2017-09-22] MEDS ORDERED: Mag-Al 1200 mg/1200 mg/30 ML UDCUP PO PRN (05:15)
[2017-09-22] MEDS ORDERED: Sodium Chloride 0.9% 1,000 ML IV SCH (05:15)
[2017-09-22] MEDS ORDERED: Bisacodyl 5 MG TAB PO PRN (05:15)
[2017-09-22] MEDS ORDERED: Dexamethasone 4 mg/ml Vial SLOW IVP SCH ×2 (06:15→12:00)
[2017-09-22] MEDS ORDERED: Famotidine/PF 20 mg/2ml Vial SLOW IVP SCH (09:00)
[2017-09-22 10:12] LABS: Bilirubin Negative (Negative); Blood, Urine Negative (Negative); Clarity CLEAR (Clear); Glucose, Urine (Dipstick) Negative (Negative); Leukocyte Negative (Negative); Nitrite Negative (Negative); Protein, Urine (Dipstick) Negative (Neg-Trace); Specific Gravity, Urine 1.019 (1.002-1.036); pH, Urine 6.5 (5.0-9.0)
[2017-09-22 10:24] LABS: Amphetamine Not Detected (NotDetected); Barbiturates Screen Not Detected (NotDetected); Benzodiazepine Screen Not Detected (NotDetected); Cocaine Metabolite Screen Not Detected (NotDetected); Medtox Reader # READER 4; Methadone Not Detected (NotDetected); Methamphetamine Not Detected (NotDetected); Opiate Screen Not Detected (NotDetected); Oxycodone Screen Not Detected (NotDetected); Phencyclidine (PCP) Not Detected (NotDetected); THC/Cannabinoid Screen Not Detected (NotDetected); Tricyclic Screen Not Detected (NotDetected)
[2017-09-22 10:25] LABS: Medtox Control Line Valid? VALID (VALID)
[2017-09-22 11:31] VITALS: BP 140/64; TEMP 99.4; BMI 27.7
--- NOTE | 2017-09-22 13:22 | HP ---
DATE OF ADMISSION: 09/22/2017 HISTORY OF PRESENT ILLNESS: The patient is a 72-year-old female known to us for a recent left frontal stereotactic brain biopsy on 09/15/2017 for evaluation of multifocal enhancing lesions in the left frontal lobe, who presents tonight for mental status changes and speech abnormalities. She had reportedly been doing well since her biopsy with minimal pain and functioning appropriately at home until the last 24 hours when the patient developed intermittent speech changes, which they describe as short periods of aphasia and some confusion. She was brought to the emergency department for evaluation where CT head was done, which showed increasing vasogenic edema in the left frontal lobe when compared to prior CT. I am seeing the patient at the bedside. She is awake, alert, no acute distress, oriented x3. Pupils equal and reactive to light. She has no focal weakness. She is slow to answer some questions and has some mild confusion. Her incision is clean and intact. No evidence of drainage or other abnormalities. PAST MEDICAL HISTORY: She is otherwise healthy. She denies any other medical problems. PAST SURGICAL HISTORY: Left stereotactic brain biopsy on 09/15/2017. FAMILY HISTORY: Noncontributory. SOCIAL HISTORY: The patient is a positive smoker, one and a half packs per day for the last 50 years. She does not drink or use any drugs. She is . She lives at home with her family. ALLERGIES: She has no known drug allergies. REVIEW OF SYSTEMS: Per HPI. PHYSICAL EXAMINATION: CONSTITUTIONAL: Awake, alert, in no acute distress. HEENT: She has a well healing incision over the left frontal region with clement in place. No drainage, redness or other abnormalities. Pupils are equally reactive to light. Extraocular movements intact. Oral mucosa is pink, intact and moist. She has a normal voice, although speech is slightly slow. NECK: Nontender to palpation. Free active range of motion. No meningismus or nuchal rigidity. CARDIOVASCULAR: Regular rate and rhythm. LUNGS: The patient is breathing comfortably with symmetric chest expansion. MUSCULOSKELETAL: She has good muscle tone. Free active range of motion of all extremities. NEUROLOGIC: She is A&O x4. No focal neurologic deficits are appreciated. ASSESSMENT AND PLAN: The patient is status post left frontal sterotactic biopsy for multiple left frontal intracranial lesions of unclear etiology, who presents tonight for intermittent speech changes and some confusion. Her CT does show some vasogenic edema in her left frontal lobe increased from her prior CT. We will plan to admit her for observation and begin Decadron 4 mg q.6h. I have also started H2 bertha. I have discussed this plan with Dr. Quiroz who is in agreement and also see the patient. Please reach out to Neurosurgery for additional questions or concerns. MTDD
--- NOTE | 2017-09-22 23:37 | DIS ---
This is Kavita Peters PA-C with Neurosurgery Service. DATE OF ADMISSION: 09/22/2017 DATE OF DISCHARGE: 09/22/2017 DISCHARGE SUMMARY : Patient is a 72-year-old female known to us from recent evaluation of left frontal brain mass, status post sterotactic brain biopsy on 09/05/2017. Pathology is pending. Following her biopsy, she reports that over the last few days, she had developed some aphasia and kristen e confusion per family. Her repeat CT in the emergency department last night revealed some increased vasogenic edema surrounding the mass in the left frontal region. She was admitted for observation t o treat with steroids. Dr. Quiroz also saw the patient during her observation admission and agreed that she could be appropriately treated as outpatient with steroids with close follow up in our offi ce. Patient has remained stable throughout her course and is tolerating regular diet, voiding approp riately, and ambulatory in the apartment. She is amenable to this plan. We will plan discharge home and followup as scheduled in our office. Please reach out to Neurosurgery for additional questions or concerns. She has been discharged on p.o. Decadron 3 mg p.o. t.i.d.
--- NOTE | 2017-09-23 10:28 | ADD-HP ---
DATE OF ADMISSION: 09/22/2017 The patient was seen and examined, I agree with Kavita Peters's note for 09/22/2017. HISTORY OF PRESENT ILLNESS: Ms. Wheeler is a 72-year-old, well known to us from known left frontal t umor, having undergone a stereotactic biopsy 1 week ago. She has been on steroids for some weeks and represented with progressive dysphagia as per her previous presentation. CT scan reveals a modest i ncreased edema around the left frontal lesion, no other specific findings. IMPRESSION AND PLAN: The patient will need to go back on steroids and we will send her out on a dose of 3 mg p.o. t.i.d. We will leave her on this dose until her followup in 1 week. Her pathology is still under investigation and hopefully we will have the results by the time we will have 1 week pee tinajero
== END 2017-09-22 12:53 | disposition home or self-care (01) ==
LOC: ERS 22:19 → ERHOLD 09-22 02:00 → 2SE 09-22 02:00
PROVIDERS: ADMIT Neurological Surgery; ATTEND Neurological Surgery
DX: G93.6 Cerebral edema (principal); F17.200 Nicotine dependence, unspecified, uncomplicated
CPT/HCPCS: 70450; 80053; 80306; 81003; 82140; 82553; 83690; 84484; 85025; 87040; 96361; 96374; 96375; J1100; S0028

== ENCOUNTER 2017-10-28 13:39 | Inpatient (IN) | payer MEDICARE ==
[2017-10-28 14:23] LABS: #Basophils 0.1 thou/uL (0.0-0.2); #Eosinphils 0.2 thou/uL (0.0-0.7); #Monocytes 0.7 thou/uL (0.11-0.59); #Neutrophils 5.9 thou/uL (1.40-6.50); %Basophils 0.9 % (0.0-1.0); %Eosinophils 2.6 % (0.0-10.0); %Lymphocytes 12.7 % (21.0-51.0); %Neutrophils 74.7 % (42.0-75.0); Hemoglobin 16.3 g/dL (12.0-16.0); Mean Corpuscular HGB CONC 34.2 g/dL (32.0-36.0); Mean Corpuscular Volume 90.6 fL (78.0-98.0); Mean Platelet Volume 7.6 fL (7.4-10.4); Platelet Count 345 thou/uL (130-400); RBC Distribution Width 13.4 % (11.5-14.5); Red Blood Cell (RBC) Count 5.26 mill/uL (4.20-5.40); White Blood Cell (WBC) Count 7.9 thou/uL (4.8-10.8)
[2017-10-28 14:42] LABS: ALT (SGPT) 58 U/L (8-55); AST (SGOT) 42 U/L (5-34); Albumin 4.1 g/dL (3.4-4.8); Alkaline Phosphatase 94 U/L (40-150); Anion Gap 21 mmol/L (10-20); BUN (Urea Nitrogen) 11 mg/dL (9.8-20.1); Bilirubin, Total 0.9 mg/dL (0.2-1.2); Calc. Creatinine Clearance 0 mL/min (70-130); Calcium 9.6 mg/dL (7.8-10.44); Carbon Dioxide 20 mmol/L (23-31); Chloride 105 mmol/L (98-107); Estimated GFR-MDRD Greater than 90; Glucose 118 mg/dL (80-115); Potassium 3.6 mmol/L (3.5-5.1); Protein, Total 8.1 g/dL (6.0-8.3); Sodium 142 mmol/L (136-145)
[2017-10-28 14:45] LABS: Bilirubin Moderate (Negative); Blood, Urine Trace (Negative); Clarity CLEAR (Clear); Glucose, Urine (Dipstick) Negative (Negative); Leukocyte Negative (Negative); Nitrite Negative (Negative); Protein, Urine (Dipstick) 30 mg/dL (Neg-Trace); Specific Gravity, Urine 1.026 (1.002-1.036); pH, Urine 5.5 (5.0-9.0)
[2017-10-28 14:47] LABS: Bacteria/HPF None Seen HPF (None Seen); Hyaline Casts/LPF 4-6 HYALINE CAST LPF (0-3 Hyaline); Pathc Cast-AUWi Flag 1.16 (0-2.49); Squamous Epithelial 0-3 HPF (0-3); WBC/HPF 0-3 HPF (0-3)
[2017-10-28 14:58] LABS: Amphetamine Not Detected (NotDetected); Barbiturates Screen Not Detected (NotDetected); Benzodiazepine Screen Not Detected (NotDetected); Cocaine Metabolite Screen Not Detected (NotDetected); Medtox Control Line Valid? VALID (VALID); Medtox Reader # READER 1; Methadone Not Detected (NotDetected); Methamphetamine Not Detected (NotDetected); Opiate Screen Not Detected (NotDetected); Oxycodone Screen Not Detected (NotDetected); Phencyclidine (PCP) Not Detected (NotDetected); THC/Cannabinoid Screen Not Detected (NotDetected); Tricyclic Screen Not Detected (NotDetected)
--- NOTE | 2017-10-28 15:44 | CT ---
CT BRAIN PERFORMED WITHOUT CONTRAST ENHANCEMENT: History: Seizure. Known brain tumor. Comparison: 09-21-17 CT examination, 10-21-17 MRI study. FINDINGS: The large left frontal mass and associated vasogenic edema is again demonstrated as is the smaller sa tellite nodule which is slightly posterior and medial. The shift of midline structures is slightly in creased and measures closer to 8 mm as compared to 5 mm on the prior MRI study. There is no hemorrhag e associated with this. IMPRESSION: Increasing mass effect with slight increase in shift of the midline structures as compared to the umesh or examination. No ventricular dilatation is seen. POS: [facility]
[2017-10-28] MEDS ORDERED: Dexamethasone 4 mg/ml Vial ONE (16:05)
--- NOTE | 2017-10-28 17:26 | PDOC.FPRHP ---
- History of Present Illness Chief Complaint: seizure like activity History of Present Illness: 72 yr old female with no PMH except recently diagnosed glioblastoma who presents for seizure like activity that occurred earlier this afternoon. Patient is not able to speak fluently and most of the history is obtained from her son and [id number]. They were on their way to the first radiation treatment when she began to have facial twitching and her eyes rolled back in her head and her lips began to quiver. This lasted approximately 2 min- witnessed by son. They came to ER. She has been getting intermittent oral steroids when symptoms worsen. She was last on oral steroids about 1.5 wks ago. She was reissued steroid yesterday but not taking. They report a 4 day history of progressively worsening right sided weakness and loss of speech. She has been sleeping more lately, but per family has been cognitively with it. She can answer yes/no questions. PCP: Lynda Azar MD Neurosurgeon: Dr. Quiroz Oncology: Dr. Rodriguez Code Status: Full as verbalized by patient and family at bedside. ED Course: Patient given keppra and decadron in ER. Neurosurgery consulted from ER. - Allergies/Adverse Reactions Allergies Allergy/AdvReac Type Severity Reaction Status Date / Time No Known Drug Allergies Allergy Verified 09/07/17 10:28 - Home Medications Medication Instructions Recorded Confirmed Type Ascorbic Acid 500 mg PO DAILY 09/07/17 09/22/17 History Red Yeast Rice 600 mg PO BID 09/07/17 09/22/17 History - History PMHx: HLD, glioblastoma PSHx: c-sections x 2, brain biopsy FHx: possible brain tumor in aunt, otherwise no medical history reported. Social: 50 years of 1.5 packs, social alcohol use, no drugs - Review of Systems General: reports: weight/appetite/sleep changes (increased sleeping), fatigue. denies: fever/chills ENT: denies: nasal congestion, rhinorrhea Respiratory: denies: cough, congestion, shortness of breath Cardiovascular: denies: chest pain, palpitation Gastrointestinal: denies: nausea, vomiting, diarrhea, constipation, abdominal pain Genitourinary: denies: dysuria Skin: denies: rashes Musculoskeletal: denies: pain, tenderness Neurological: reports: seizure (see HPI), weakness - Vital signs BP: [115/71] HR: [98] RR: [24] Tmax: [98.2] Pox: [99]% on [RA] Wt: [72 kg] - Physical Exam Constitutional: NAD, well developed -Constitutional: Awake, easily arrousable but appears drousy HEENT: normocephalic and atraumatic, PERRLA, EOMI, conjunctiva clear -HEENT: dry mucous membranes Neck: supple, FROM Heart: RRR, no murmurs/rubs/gallops Lungs: CTAB, no respiratory distress, good air movement, no rales/rhonchi, no wheezing Abdomen: soft, non-tender, bowel sounds present -Neurological: patient follows commands poorly so unable to accurately assess all CN. opens mouth, closes and opens eyes, reports sensation bilaterally on face, slight facial droop to smile on right RUE- 0/5 strength RLE- 0/5 strength, no sensation LLE- 1/5 strength, sensation present LUE- 2/5 strength, able to slide leg up bed, no clonus, unable to illicit patellar reflex PERRL severe dysarthria Skin: no rash/lesions Heme/Lymphatic: no unusual bruising or bleeding FMR H&P: Results - Labs Result Diagrams: 10/28/17 14:05 10/28/17 14:05 Lab results: WBC 7.9 thou/uL (4.8-10.8) 10/28/17 14:05 Hgb 16.3 g/dL (12.0-16.0) H 10/28/17 14:05 Hct 47.7 % (36.0-47.0) H 10/28/17 14:05 MCV 90.6 fL (78.0-98.0) 10/28/17 14:05 Plt Count 345 thou/uL (130-400) 10/28/17 14:05 Neutrophils % 74.7 % (42.0-75.0) 10/28/17 14:05 Sodium 142 mmol/L (136-145) 10/28/17 14:05 Potassium 3.6 mmol/L (3.5-5.1) 10/28/17 14:05 Chloride 105 mmol/L (98-107) 10/28/17 14:05 Carbon Dioxide 20 mmol/L (23-31) L 10/28/17 14:05 BUN 11 mg/dL (9.8-20.1) 10/28/17 14:05 Creatinine 0.62 mg/dL (0.6-1.1) 10/28/17 14:05 Glucose 118 mg/dL (80-115) H 10/28/17 14:05 Calcium 9.6 mg/dL (7.8-10.44) 10/28/17 14:05 Total Bilirubin 0.9 mg/dL (0.2-1.2) 10/28/17 14:05 AST 42 U/L (5-34) H 10/28/17 14:05 ALT 58 U/L (8-55) H 10/28/17 14:05 Alkaline Phosphatase 94 U/L (40-150) 10/28/17 14:05 Serum Total Protein 8.1 g/dL (6.0-8.3) 10/28/17 14:05 Albumin 4.1 g/dL (3.4-4.8) 10/28/17 14:05 Urine Ketones > or equal to 80 mg/dL (Negative) H 10/28/17 14:25 Urine Blood Trace (Negative) H 10/28/17 14:25 Urine Nitrite Negative (Negative) 10/28/17 14:25 Ur Leukocyte Esterase Negative (Negative) 10/28/17 14:25 Urine RBC 11-20 HPF (0-3) H 10/28/17 14:25 Urine WBC 0-3 HPF (0-3) 10/28/17 14:25 Ur Squamous Epith Cells 0-3 HPF (0-3) 10/28/17 14:25 Urine Bacteria None Seen HPF (None Seen) 10/28/17 14:25 - Radiology Interpretation CT scan - head Status: report reviewed by me (increasing mass effect with slight increase in shift of midline structures, vasogenic edema) FMR H&P: A/P - Problem List (1) Seizure Current Visit: Yes Status: Acute Code(s): R56.9 - UNSPECIFIED CONVULSIONS (2) Glioblastoma determined by biopsy of brain Current Visit: Yes Status: Acute Code(s): C71.9 - MALIGNANT NEOPLASM OF BRAIN, UNSPECIFIED (3) Vasogenic brain edema Current Visit: Yes Status: Acute Code(s): G93.6 - CEREBRAL EDEMA (4) Expressive aphasia Current Visit: No Status: Acute Code(s): R47.01 - APHASIA (5) Tobacco abuse Current Visit: No Status: Acute Code(s): Z72.0 - TOBACCO USE - Plan 72 yr old female with recent diagnosis of glioblastoma presents with seizure like activity. focal seizure likely 2/2 mass effect -cont IV keppra -electrolytes wnl hypovolemia -initiate LR at 125 ml/hr glioblastoma, non-operable -neurosurgery consulted -reach out to oncology -family planning to pursue radiation therapy and MD andersen consult -consult palliative care to discuss goals of care and poor prognosis vasogenic edema -likely cause of expressive aphasia and seizure activity -cont steroids, has received IV decadron in ER tobacco abuse -offer nicoderm patch
[2017-10-28] MEDS ORDERED: Ondansetron HCl/PF 4 MG/2 ML Vial IVP PRN (17:54)
[2017-10-28] MEDS ORDERED: Acetaminophen 325 MG TAB PO PRN (17:54)
[2017-10-28] MEDS ORDERED: Ondansetron ODT 4 MG TAB PO PRN (17:54)
[2017-10-28 18:36] VITALS: BMI 24.3
--- NOTE | 2017-10-28 19:15 | CON ---
DATE OF CONSULTATION: 10/28/2017 ATTENDING PHYSICIAN: Nicko Quiroz M.D. HISTORY OF PRESENT ILLNESS: The patient is a 72-year-old female known to us for recent mell luation of left frontal lesion who underwent stereotactic biopsy with pathology consistent with gliob lastoma who presented today to the ER after a seizure-like episode. The patient's family reports nury t over the past week, she has had progressive increase in her aphasia as well as development of some right-sided weakness. They have plans to follow up today with Radiation Oncology to begin treatment. Family reports they were on the way to her appointment when she became suddenly unresponsive, began having twitching of the eyes and the right side of his face. She was brought to the Emergency Depar tment for further evaluation. CT head was done, which shows progressive left frontal glioblastoma wi th surrounding vasogenic edema and midline shift. My exam was significantly limited by her postictal state. Her vital signs were stable. She did open her eyes and follow some commands. Her pupils were equal and reactive. Extraocular movements intac t and she was noted to have significant right-sided weakness. Unfortunately, the patient's tumor location is inoperable and this was discussed extensively during h er recent visit in the office with Dr. Quiroz. She was referred to Oncology as well as Radiation O ncology and they have plans to begin treatment, but this has not yet been initiated. At this time, Nirali briscoe has no plans for any additional surgical intervention. We will defer treatment plan to O ncology as well as we would recommend Neurology involvement to manage her seizures. Depending on the ir plan, she may benefit from Palliative Care consult. Please reach out to Neurosurgery for addition al questions or concerns.
[2017-10-28] MEDS: Dexamethasone 4 mg/ml Vial SLOW IVP SCH (20:47)
[2017-10-28] MEDS: Nicotine 14 MG PATCH TD SCH (20:48)
[2017-10-28] MEDS: Lactated Ringer's 1,000 ML IV SCH (20:48)
[2017-10-28] MEDS ORDERED: Prevnar 13-Val Conj/PF 0.5 ML SYRINGE IM ONE (21:00)
[2017-10-29] MEDS: Lactated Ringer's 1,000 ML IV SCH ×2 (03:09→08:27)
[2017-10-29 04:59] LABS: #Eosinphils 0.1 thou/uL (0.0-0.7); #Lymphocytes 0.7 thou/uL (1.20-3.40); #Monocytes 0.2 thou/uL (0.11-0.59); %Basophils 0.4 % (0.0-1.0); %Eosinophils 1.5 % (0.0-10.0); %Lymphocytes 10.2 % (21.0-51.0); %Monocytes 2.5 % (0.0-10.0); %Neutrophils 85.4 % (42.0-75.0); Hemoglobin 14.8 g/dL (12.0-16.0); Mean Corpuscular HGB CONC 34.1 g/dL (32.0-36.0); Mean Corpuscular Hemoglobin 31.1 pg (27.0-31.0); Mean Corpuscular Volume 91.1 fL (78.0-98.0); Mean Platelet Volume 7.8 fL (7.4-10.4); Platelet Count 318 thou/uL (130-400); RBC Distribution Width 13.2 % (11.5-14.5); Red Blood Cell (RBC) Count 4.77 mill/uL (4.20-5.40)
[2017-10-29 05:17] LABS: ALT (SGPT) 44 U/L (8-55); AST (SGOT) 25 U/L (5-34); Albumin 3.7 g/dL (3.4-4.8); Alkaline Phosphatase 82 U/L (40-150); Anion Gap 15 mmol/L (10-20); BUN (Urea Nitrogen) 14 mg/dL (9.8-20.1); Bilirubin, Total 0.6 mg/dL (0.2-1.2); Calc. Creatinine Clearance 105 mL/min (70-130); Calcium 9.1 mg/dL (7.8-10.44); Carbon Dioxide 24 mmol/L (23-31); Chloride 107 mmol/L (98-107); Estimated GFR-MDRD Greater than 90; Globulin 3.3 g/dL (2.4-3.5); Glucose 143 mg/dL (80-115); Potassium 3.5 mmol/L (3.5-5.1); Sodium 142 mmol/L (136-145)
[2017-10-29] MEDS: Dexamethasone 4 mg/ml Vial SLOW IVP SCH ×3 (07:51→20:14)
[2017-10-29] MEDS: Enoxaparin Sodium 40 MG/0.4 ML SYRINGE SC SCH (07:51)
[2017-10-29] MEDS ORDERED: Dexamethasone 4 MG in Sodium Chloride 0.9% 50 ML IVPB SCH (09:00)
--- NOTE | 2017-10-29 10:01 | HP ---
I have examined the patient. I have discussed the case with Dr. Kemi Salgado and agree with her asses sment and plan. HISTORY OF PRESENT ILLNESS: Ms. Wheeler is an unfortunate 72-year-old white female who was recently diagnosed with glioblastoma. This afternoon while leaving a radiation therapy session she had a br ief seizure and was brought to our ER. She has an expressive aphasia. She was also noted to have so me worsening of her aphasia. PHYSICAL EXAMINATION: VITAL SIGNS: Her blood pressure is 120/70, her heart rate is 90, respirations 20. She is afebrile. GENERAL: She is alert, but has an expressive aphasia. HEENT: Grossly normal. NECK: Supple. CARDIAC: Heart rhythm regular, no gallop or murmur noted. LUNGS: Clear. ABDOMEN: Flat and soft. LABORATORY DATA: CBC: White count 7900, hemoglobin 16.3, hematocrit 47.7. Chemistries: Sodium 142 , potassium 3.6, chloride 105, bicarbonate 20, BUN 11, creatinine 0.62. We will consult Oncology. ASSESSMENT: Glioblastoma with resultant seizure. Likely an element of cerebral edema. We will cons ult with Oncology and Neurosurgery and proceed.
--- NOTE | 2017-10-29 12:31 | PDOC.FM ---
- Subjective Subjective: Patient is unable to converse but will able to answer yes/no questions and say thank you. Uneventful overnight. No additional seizures. Has gained some strength. Son and [id number] in room. Son expresses concern about caring for mother and not having the resources needed at home. - Objective MAR Reviewed: Yes Vital Signs & Weight: Vital Signs (12 hours) Temp Pulse Resp BP Pulse Ox 10/29/17 11:18 97.2 F L 99 18 121/65 93 L 10/29/17 08:00 97.5 F L 73 20 10/29/17 07:51 97.5 F L 73 20 115/71 92 L 10/29/17 04:30 97.6 F 66 12 113/67 92 L Weight Weight 72.575 kg I&O: 10/28/17 10/29/17 10/30/17 06:59 06:59 06:59 Intake Total 1500 240 Balance 1500 240 Result Diagrams: 10/29/17 03:52 10/29/17 03:52 Phys Exam - Physical Examination Constitutional: NAD HEENT: moist MMs Respiratory: clear to auscultation bilateral Cardiovascular: RRR, no significant murmur Gastrointestinal: soft, non-tender, no distention, positive bowel sounds Musculoskeletal: no edema RUE 3/4 strength, RLE 3/4 strength, LUE 4/5, LLE 3/5, expressive aphasia Psychiatric: normal affect Dx/Plan (1) Glioblastoma determined by biopsy of brain Code(s): C71.9 - MALIGNANT NEOPLASM OF BRAIN, UNSPECIFIED Status: Acute (2) Seizure Code(s): R56.9 - UNSPECIFIED CONVULSIONS Status: Acute (3) Vasogenic brain edema Code(s): G93.6 - CEREBRAL EDEMA Status: Acute (4) Abnormal finding on CT scan Code(s): R93.8 - ABNORMAL FINDINGS ON DIAGNOSTIC IMAGING OF BODY STRUCTURES Status: Acute (5) Expressive aphasia Code(s): R47.01 - APHASIA Status: Acute (6) Hyperlipidemia Code(s): E78.5 - HYPERLIPIDEMIA, UNSPECIFIED Status: Acute (7) Hypertension Code(s): I10 - ESSENTIAL (PRIMARY) HYPERTENSION Status: Acute (8) Tobacco abuse Code(s): Z72.0 - TOBACCO USE Status: Acute - Plan Plan: 72 year old female with unoperable glioblastoma admitted for new onset seizure. Focal seizure - Neurology consulted, appreciate recommendations - no new seizures, continue Keppra 500 BID - likely due to mass effect with midline shift seen on CT brain Glioblastoma, non-operable -neurosurgery consulted, recommended neurology, palliative consults -Oncology available to see patient, but not necessary at this point. Decadron 4mg TID to be continued. -Radiation planned for yesterday, but will start as soon as possible -Family to talk with palliative care today to discuss goals of care Weakness, improving - secondary to glioblastoma - PT consulted - patient needs additional help as family unable to manage at home - passed bedside swallow
[2017-10-29] MEDS: Nicotine 14 MG PATCH TD SCH (13:42)
--- NOTE | 2017-10-29 15:28 | ADD-PRG ---
DATE OF SERVICE: 10/29/2017 This is an addendum to the note of Dr. Yuli Snyder. The patient is awake and alert this morning and actually appears cheerful. We are attempting to coor dinate her care with the radiotherapist as well as Oncology and Neurology. We have placed her on Kep pra and have continued her on Decadron for her cerebral edema. Further treatment, we will await talk ing with Radiation Oncology and Urology.
--- NOTE | 2017-10-29 21:27 | CON ---
DATE OF CONSULTATION: 10/29/2017 CONSULTING PHYSICIAN: Hospitalist Service. IMPRESSION: Glioblastoma with secondary seizures. PLAN: 1. Keppra 500 mg twice a day. 2. Hospice care. HISTORY OF PRESENT ILLNESS: Ms. Wheeler is a 72-year-old white female, who was recently diagnosed wi th a grade 4 glioblastoma in the left anterior parietal region. She has developed progressive aphasi a and right-sided weakness. She had a witnessed seizure. She was brought into the hospital. Her CT scan did not show any remarkable change compared to her prior MRI. Her seizures were brought under control with Keppra. Family reports she seems to be at her recent baseline. PAST MEDICAL HISTORY: Otherwise unremarkable. ALLERGIES: None reported. SOCIAL HISTORY: Noncontributory. REVIEW OF SYSTEMS: Not obtainable. PHYSICAL EXAMINATION: GENERAL: She is a well-nourished elderly woman, lying in bed, in no distress. VITAL SIGNS: Stable. She is afebrile. HEENT: Pupils are equal and reactive. Conjunctivae clear. She passed her swallowing test. NEUROLOGIC: The cranial nerve exam shows some subtle right-sided weakness. Motor exam showed marked weakness of the right arm and less so in the leg. No abnormal movements were seen. Gait was not te stable. SUMMARY: Agree with current management. I will be happy to assist in her care when she is discharge d.
--- NOTE | 2017-10-30 05:49 | PDOC.FM ---
- Subjective Subjective: Family discussed with palliative care and case management yesterday about goals of care and options upon discharge. Received radiation yesterday as well as this morning. Patient sitting up in bed. - Objective MAR Reviewed: Yes Vital Signs & Weight: Vital Signs (12 hours) Temp Pulse Resp BP Pulse Ox 10/30/17 00:41 94 L 10/29/17 20:13 97.4 F L 86 18 101/58 L 94 L Weight Weight 72.575 kg I&O: 10/28/17 10/29/17 10/30/17 06:59 06:59 06:59 Intake Total 1500 2085 Balance 1500 2085 Result Diagrams: 10/29/17 03:52 10/29/17 03:52 Phys Exam - Physical Examination Constitutional: NAD Respiratory: no wheezing, no rales, no rhonchi, clear to auscultation bilateral Cardiovascular: RRR, no significant murmur Gastrointestinal: soft, non-tender, no distention, positive bowel sounds Musculoskeletal: no edema, pulses present expressive aphasia, limited strength unchanged since yesterday Dx/Plan (1) Glioblastoma determined by biopsy of brain Code(s): C71.9 - MALIGNANT NEOPLASM OF BRAIN, UNSPECIFIED Status: Acute (2) Seizure Code(s): R56.9 - UNSPECIFIED CONVULSIONS Status: Acute (3) Vasogenic brain edema Code(s): G93.6 - CEREBRAL EDEMA Status: Acute (4) Abnormal finding on CT scan Code(s): R93.8 - ABNORMAL FINDINGS ON DIAGNOSTIC IMAGING OF BODY STRUCTURES Status: Acute (5) Expressive aphasia Code(s): R47.01 - APHASIA Status: Acute (6) Hyperlipidemia Code(s): E78.5 - HYPERLIPIDEMIA, UNSPECIFIED Status: Acute (7) Hypertension Code(s): I10 - ESSENTIAL (PRIMARY) HYPERTENSION Status: Acute (8) Tobacco abuse Code(s): Z72.0 - TOBACCO USE Status: Acute - Plan Plan: 72 year old female with unoperable glioblastoma admitted for new onset seizure. Focal seizure - Neurology consulted, agree with current management and will follow outpatient - no new seizures, continue Keppra 500 BID. Will transition to PO today. - likely due to mass effect with midline shift seen on CT brain Glioblastoma, non-operable -Neurosurgery consulted -Oncology available to see patient, but not necessary at this point. Decadron 4mg TID to be continued, transition to PO. -Radiation planned for yesterday, but will start as soon as possible -Family met with palliative care team yesterday. Home health with bridge to hospice recommended. Case management involved and evaluating options. Weakness, improving - secondary to glioblastoma - PT consulted, pending evaluation - patient needs additional help as family unable to manage at home - passed bedside swallow, tolerating regular diet well Ppx: Lovenox Dispo: Home with upon discharge
[2017-10-30] MEDS: Dexamethasone 4 mg/ml Vial SLOW IVP SCH (09:42)
[2017-10-30] MEDS: Enoxaparin Sodium 40 MG/0.4 ML SYRINGE SC SCH (09:42)
[2017-10-30] MEDS: Dexamethasone 4 MG TAB PO SCH ×2 (14:46→20:40)
[2017-10-30] MEDS ORDERED: levETIRAcetam 500 MG TAB PO SCH (15:00)
[2017-10-30] MEDS: Nicotine 14 MG PATCH TD SCH (17:34)
--- NOTE | 2017-10-31 05:33 | PDOC.FM ---
- Subjective Subjective: Ms. Wheeler was awake, wanting to sit up in bed to eat breakfast. Her speech has shown some improvement. Family considering best options for discharge placement or assistance. - Objective MAR Reviewed: Yes Vital Signs & Weight: Vital Signs (12 hours) Temp Pulse Resp BP Pulse Ox 10/30/17 20:40 97.5 F L 70 16 94 L 10/30/17 19:53 97.5 F L 70 16 124/69 91 L Weight Weight 72.575 kg I&O: 10/29/17 10/30/17 10/31/17 06:59 06:59 06:59 Intake Total 1500 2415 600 Balance 1500 2415 600 Result Diagrams: 10/29/17 03:52 10/29/17 03:52 <Yuli Snyder - Last Filed: 10/31/17 07:20> - Objective Vital Signs & Weight: Vital Signs (12 hours) Temp Pulse Resp BP Pulse Ox 10/31/17 20:00 98.0 F 62 18 151/83 H 95 Weight Weight 72.575 kg I&O: 10/30/17 10/31/17 11/01/17 06:59 06:59 06:59 Intake Total 2415 860 Balance 2415 860 Result Diagrams: 10/29/17 03:52 10/29/17 03:52 <Lynda Azar - Last Filed: 10/31/17 21:32> Phys Exam - Physical Examination Constitutional: NAD HEENT: moist MMs Respiratory: no wheezing, no rales, no rhonchi, clear to auscultation bilateral Cardiovascular: RRR, no significant murmur Gastrointestinal: soft, non-tender, no distention, positive bowel sounds Musculoskeletal: no edema, pulses present expressive aphasia, RUE and RLE 3/5 strength. LUE 5/5, LLE 4/5. Psychiatric: normal affect <Yuli Snyder - Last Filed: 10/31/17 07:20> Dx/Plan (1) Glioblastoma determined by biopsy of brain Code(s): C71.9 - MALIGNANT NEOPLASM OF BRAIN, UNSPECIFIED Status: Acute (2) Seizure Code(s): R56.9 - UNSPECIFIED CONVULSIONS Status: Acute (3) Vasogenic brain edema Code(s): G93.6 - CEREBRAL EDEMA Status: Acute (4) Abnormal finding on CT scan Code(s): R93.8 - ABNORMAL FINDINGS ON DIAGNOSTIC IMAGING OF BODY STRUCTURES Status: Acute (5) Expressive aphasia Code(s): R47.01 - APHASIA Status: Acute (6) Hyperlipidemia Code(s): E78.5 - HYPERLIPIDEMIA, UNSPECIFIED Status: Acute (7) Hypertension Code(s): I10 - ESSENTIAL (PRIMARY) HYPERTENSION Status: Acute (8) Tobacco abuse Code(s): Z72.0 - TOBACCO USE Status: Acute - Plan Plan: 72 year old female with unoperable glioblastoma admitted for new onset seizure. Focal seizure - likely due to mass effect with midline shift seen on CT brain - Neurology consulted, agree with current management and will follow outpatient - no new seizures, continue Keppra 500 BID Glioblastoma, non-operable -Neurosurgery consulted -Oncology available for official consult, but not necessary at this point. Decadron 4mg TID to be continued. -Has received 2 radiations treatments. Plan for daily radiation. -Family has met with palliative care and case management teams. Considering SNF vs home with HH. Weakness, improving - secondary to glioblastoma - PT consulted - patient needs additional help as family unable to manage at home - passed bedside swallow, tolerating regular diet well Ppx: Lovenox Dispo: Pending family decision on SNF [facility] vs HH <Yuli Snyder - Last Filed: 10/31/17 07:20> Attending Addendum - Attending Addendum Date/Time: 10/31/172129 I personally evaluated the patient at 10 am and discussed the management with Dr. Snyder. I agree with the History, Examination, Assessment and Plan documented above with any addition or exceptions noted below. Ms Wheeler is a personal patient of [facility] [employer] and I had a long family discussion about prognosis of her glioblastoma and goal of care. Patient and family open to discuss with hospice but not sure where they will go from here. For now continue keppra, steroids and xrt. <Lynda Azar - Last Filed: 10/31/17 21:32>
[2017-10-31] MEDS: levETIRAcetam 500 MG TAB PO SCH ×2 (08:50→20:05)
[2017-10-31] MEDS: Dexamethasone 4 MG TAB PO SCH ×3 (08:50→20:04)
[2017-10-31] MEDS: Enoxaparin Sodium 40 MG/0.4 ML SYRINGE SC SCH (08:50)
--- NOTE | 2017-10-31 14:49 | ADD-PRG ---
DATE OF SERVICE: 10/30/2017 This is an addendum to the note of Dr. Yuli Snyder. Ms. Wheeler has just returned from a session of radiation therapy to the brain for her glioblastoma. She is alert, awake in no distress. We are still making some case management decisions regarding he r ongoing care in anticipation of discharge.
[2017-10-31] MEDS: Nicotine 14 MG PATCH TD SCH (18:08)
--- NOTE | 2017-11-01 06:08 | PDOC.FM ---
- Subjective Subjective: Ms. Wheeler was sitting up in bed awake this morning. Speech has improved some. She has no new complaints. Has been receiving daily radiation. - Objective MAR Reviewed: Yes Vital Signs & Weight: Vital Signs (12 hours) Temp Pulse Resp BP Pulse Ox 10/31/17 20:00 98.0 F 62 18 151/83 H 95 Weight Weight 72.575 kg I&O: 10/30/17 10/31/17 11/01/17 06:59 06:59 06:59 Intake Total 2415 860 Balance 2415 860 Result Diagrams: 10/29/17 03:52 10/29/17 03:52 <Yuli Snyder - Last Filed: 11/01/17 07:12> - Objective Vital Signs & Weight: Vital Signs (12 hours) Temp Pulse Resp BP Pulse Ox 11/01/17 08:00 97.9 F 66 18 93 L 11/01/17 07:31 97.9 F 66 18 126/77 93 L Weight Weight 72.575 kg I&O: 10/31/17 11/01/17 11/02/17 06:59 06:59 06:59 Intake Total 860 260 Balance 860 260 Result Diagrams: 10/29/17 03:52 10/29/17 03:52 <Lynda Azar - Last Filed: 11/01/17 11:55> Phys Exam - Physical Examination Constitutional: NAD Respiratory: no wheezing, no rales, no rhonchi, clear to auscultation bilateral Cardiovascular: RRR, no significant murmur Gastrointestinal: soft, non-tender, no distention Musculoskeletal: no edema, pulses present expressive aphasia, LUE and LLE 4/5, RUE and RLE 3/5 strength Psychiatric: normal affect <Yuli Snyder - Last Filed: 11/01/17 07:12> Dx/Plan (1) Glioblastoma determined by biopsy of brain Code(s): C71.9 - MALIGNANT NEOPLASM OF BRAIN, UNSPECIFIED Status: Acute (2) Seizure Code(s): R56.9 - UNSPECIFIED CONVULSIONS Status: Acute (3) Vasogenic brain edema Code(s): G93.6 - CEREBRAL EDEMA Status: Acute (4) Abnormal finding on CT scan Code(s): R93.8 - ABNORMAL FINDINGS ON DIAGNOSTIC IMAGING OF BODY STRUCTURES Status: Acute (5) Expressive aphasia Code(s): R47.01 - APHASIA Status: Acute (6) Hyperlipidemia Code(s): E78.5 - HYPERLIPIDEMIA, UNSPECIFIED Status: Acute (7) Hypertension Code(s): I10 - ESSENTIAL (PRIMARY) HYPERTENSION Status: Acute (8) Tobacco abuse Code(s): Z72.0 - TOBACCO USE Status: Acute - Plan Plan: 72 year old female with unoperable glioblastoma admitted for new onset seizure. Focal seizure - likely due to mass effect with midline shift seen on CT brain - Neurology consulted, agree with current management and will follow outpatient - no new seizures, continue Keppra 500 BID Glioblastoma, non-operable -Neurosurgery consulted -Oncology available for official consult, but not necessary at this point. Decadron 4mg TID to be continued. -Receiving daily radiation. -Family has met with palliative care and case management teams. They wish to continue receiving curative radiation treatments. Considering home health with palliative care. Weakness, improving - secondary to glioblastoma - PT consulted - patient needs additional help as family unable to manage at home - passed bedside swallow, tolerating regular diet well Ppx: Lovenox Dispo: Pending decision on placement <Yuli Snyder - Last Filed: 11/01/17 07:12> Attending Addendum - Attending Addendum Date/Time: 11/01/17 1152 I personally evaluated the patient at 0925 and discussed the management with Dr. Snyder I agree with the History, Examination, Assessment and Plan documented above with any addition or exceptions noted below. Glioblastoma with mass effect causing seizures and dysarthria and R sided weakness- on steroids, keppra and getting xrt. Family and patient are trying to determine whether SNF with XRT vs HH with palliative care are the best option. Continue to discuss. Patient medically stable for discharge once has set up SNF vs HH. <Lynda Azar - Last Filed: 11/01/17 11:55>
[2017-11-01] MEDS: Enoxaparin Sodium 40 MG/0.4 ML SYRINGE SC SCH (08:12)
[2017-11-01] MEDS: levETIRAcetam 500 MG TAB PO SCH ×2 (08:12→21:07)
[2017-11-01] MEDS: Dexamethasone 4 MG TAB PO SCH ×3 (08:12→21:07)
[2017-11-01] MEDS: Nicotine 14 MG PATCH TD SCH (17:57)
--- NOTE | 2017-11-02 05:22 | PDOC.FM ---
- Subjective Subjective: Ms. Wheeler has no new complaints this morning. She was resting well in bed with daughter at the bedside. - Objective MAR Reviewed: Yes Vital Signs & Weight: Vital Signs (12 hours) Temp Pulse Resp BP Pulse Ox 11/01/17 21:35 97.4 F L 60 119/76 93 L 11/01/17 19:50 97.4 F L 60 20 93 L Weight Weight 72.575 kg I&O: 10/31/17 11/01/17 11/02/17 06:59 06:59 06:59 Intake Total 860 260 Balance 860 260 Result Diagrams: 10/29/17 03:52 10/29/17 03:52 <Yuli Snyder - Last Filed: 11/02/17 08:30> - Objective Vital Signs & Weight: Vital Signs (12 hours) Temp Pulse Resp BP Pulse Ox 11/02/17 08:00 98.4 F 62 18 93 L 11/02/17 07:57 98.4 F 62 18 111/61 93 L Weight Weight 72.575 kg I&O: 11/01/17 11/02/17 11/03/17 06:59 06:59 06:59 Intake Total 260 120 Balance 260 120 Result Diagrams: 10/29/17 03:52 10/29/17 03:52 <Mariposa Mullins - Last Filed: 11/02/17 14:01> Phys Exam - Physical Examination Constitutional: NAD Respiratory: clear to auscultation bilateral Cardiovascular: RRR Gastrointestinal: soft, non-tender, no distention, positive bowel sounds Musculoskeletal: no edema, pulses present improving muscle strength, expressive aphasia improving. LUE 5/5, RUE 4/5. Psychiatric: normal affect <Yuli Snyder - Last Filed: 11/02/17 08:30> Dx/Plan (1) Glioblastoma determined by biopsy of brain Code(s): C71.9 - MALIGNANT NEOPLASM OF BRAIN, UNSPECIFIED Status: Acute (2) Seizure Code(s): R56.9 - UNSPECIFIED CONVULSIONS Status: Acute (3) Vasogenic brain edema Code(s): G93.6 - CEREBRAL EDEMA Status: Acute (4) Abnormal finding on CT scan Code(s): R93.8 - ABNORMAL FINDINGS ON DIAGNOSTIC IMAGING OF BODY STRUCTURES Status: Acute (5) Expressive aphasia Code(s): R47.01 - APHASIA Status: Acute (6) Hyperlipidemia Code(s): E78.5 - HYPERLIPIDEMIA, UNSPECIFIED Status: Acute (7) Hypertension Code(s): I10 - ESSENTIAL (PRIMARY) HYPERTENSION Status: Acute (8) Tobacco abuse Code(s): Z72.0 - TOBACCO USE Status: Acute - Plan Plan: 72 year old female with unoperable glioblastoma admitted for new onset seizure. Focal seizure - likely due to mass effect with midline shift seen on CT brain - Neurology consulted, agree with current management and will follow outpatient - no new seizures, continue Keppra 500 BID Glioblastoma, non-operable -Neurosurgery consulted -Oncology available for official consult, but not necessary at this point. Decadron 4mg TID to be continued. -Receiving daily radiation. -Family has met with palliative care and case management teams. They wish to continue receiving curative radiation treatments. Considering home health with palliative care vs SNF. Weakness, improving - secondary to glioblastoma - PT consulted - patient needs additional help as family unable to manage at home - passed bedside swallow, tolerating regular diet well Ppx: Lovenox Dispo: Pending decision on placement <Yuli Snyder - Last Filed: 11/02/17 08:30> Attending Addendum - Attending Addendum Date/Time: 11/02/17 2807 I personally evaluated the patient and discussed the management with Dr. Snyder. I agree with the History, Examination, Assessment and Plan documented above with any addition or exceptions noted below. This morning patient is asking to go home with hospice. Pt's son was met in the hallway and stated that the patinet told him the same thing about going home with hospice. Son want her to continue radiation. He expressed a desire to speak with palliative care again to help coordinate a plan for discharge whether SNF to continue glioblastoma treatment or home with hospice. Dr. Snyder has notified palliative care. <Mariposa Mullins - Last Filed: 11/02/17 14:01>
[2017-11-02] MEDS: Dexamethasone 4 MG TAB PO SCH ×3 (08:54→20:50)
[2017-11-02] MEDS: levETIRAcetam 500 MG TAB PO SCH ×2 (08:54→20:50)
[2017-11-02] MEDS: Enoxaparin Sodium 40 MG/0.4 ML SYRINGE SC SCH (08:54)
[2017-11-02] MEDS: Nicotine 14 MG PATCH TD SCH (17:34)
--- NOTE | 2017-11-02 19:30 | PDOC.EVN ---
Event Note - Event Note Event Note: Attending note I was asked to evaluate the patient for medical decision making capacity. I was able to sit and converse with the patient about her diagnosis, treatment, and the things that are important to her and the things she that worry her. Her verbal communication is slowed by ehr expressive aphasia but with patience I was able to get a good sense of her capacity. She understands she has brain cancer. She is frustrated and saddened that she "is going to ." She loves her children and believes that they want her to be happy. She does not understand the nature of her treatments, or how they benefit her. She does not like the idea of going to a SNF, and while she does favor being treated for cancer, she seemed to suggest she is okay with not treatment too. She expressed desire to be at home. She could not express understanding of her own care requirements (24/7 assistance for even ADLs). She could not express understanding that her children could not provide this level of care. Rachael has the capacity to make simple decisions; but her she does not possess the capacity to make decisions about care that requires consideration of logistics, benefit/risk analysis. The son clearly is trying to direct her care towards what the patient desires, but they seem caught between home with hospice , or SNF with radiation treatment. Because the patient had earlier expressed resistance to the idea of hospice neither option seem good . From my conversation with Rachael I think she values being at home more than treatment. The son will explore whether hospice will provide the resources to allow her to be cared for at home 24/7 adn whether palliative radiation is possible.
--- NOTE | 2017-11-03 05:55 | PDOC.FM ---
- Subjective Subjective: Ms. Wheeler was resting in bed, had just been positioned by nurse. She says she is doing good, has no new complaints. - Objective MAR Reviewed: Yes Vital Signs & Weight: Vital Signs (12 hours) Temp Pulse Resp BP Pulse Ox 11/02/17 21:00 98.3 F 60 18 104/62 94 L 11/02/17 19:50 98.3 F 60 18 94 L Weight Weight 72.575 kg I&O: 11/01/17 11/02/17 11/03/17 06:59 06:59 06:59 Intake Total 260 120 920 Balance 260 120 920 Result Diagrams: 10/29/17 03:52 10/29/17 03:52 <Yuli Snyder - Last Filed: 11/03/17 08:01> - Objective Vital Signs & Weight: Vital Signs (12 hours) Temp Pulse Resp BP BP Pulse Ox 11/03/17 11:00 97.3 F L 66 18 111/68 97 11/03/17 08:27 97.3 F L 62 18 93 L 11/03/17 07:27 97.3 F L 62 18 117/69 93 L Weight Weight 72.575 kg I&O: 11/02/17 11/03/17 11/04/17 06:59 06:59 06:59 Intake Total 120 1040 Balance 120 1040 Result Diagrams: 10/29/17 03:52 10/29/17 03:52 <Mariposa Mullins - Last Filed: 11/03/17 16:02> Phys Exam - Physical Examination Constitutional: NAD Respiratory: no wheezing, no rales, no rhonchi, clear to auscultation bilateral Cardiovascular: RRR, no significant murmur Gastrointestinal: soft, non-tender, no distention, positive bowel sounds Musculoskeletal: no edema expressive aphasia, muscle weakness Psychiatric: normal affect <Yuli Snyder - Last Filed: 11/03/17 08:01> Dx/Plan (1) Glioblastoma determined by biopsy of brain Code(s): C71.9 - MALIGNANT NEOPLASM OF BRAIN, UNSPECIFIED Status: Acute (2) Seizure Code(s): R56.9 - UNSPECIFIED CONVULSIONS Status: Acute (3) Vasogenic brain edema Code(s): G93.6 - CEREBRAL EDEMA Status: Acute (4) Abnormal finding on CT scan Code(s): R93.8 - ABNORMAL FINDINGS ON DIAGNOSTIC IMAGING OF BODY STRUCTURES Status: Acute (5) Expressive aphasia Code(s): R47.01 - APHASIA Status: Acute (6) Hyperlipidemia Code(s): E78.5 - HYPERLIPIDEMIA, UNSPECIFIED Status: Acute (7) Hypertension Code(s): I10 - ESSENTIAL (PRIMARY) HYPERTENSION Status: Acute (8) Tobacco abuse Code(s): Z72.0 - TOBACCO USE Status: Acute - Plan Plan: 72 year old female with unoperable glioblastoma admitted for new onset seizure. Focal seizure - likely due to mass effect with midline shift seen on CT brain - Neurology consulted, agree with current management and will follow outpatient - no new seizures, continue Keppra 500 BID Glioblastoma, non-operable -Neurosurgery consulted -Oncology available for official consult, but not necessary at this point. Decadron 4mg TID to be continued. -Receiving daily radiation. - after discussion with Dr. Keen, palliative care, and case management, plans are made to pursue home with hospice. Family will meet with hospice companies today. Weakness, improving - secondary to glioblastoma - PT consulted - patient needs additional help as family unable to manage at home - passed bedside swallow, tolerating regular diet well Ppx: Lovenox Dispo: Home with hospice, pending decision on company and arrangements <Yuli Snyder - Last Filed: 11/03/17 08:01> Attending Addendum - Attending Addendum Date/Time: 11/03/17 1601 I personally evaluated the patient and discussed the management with Dr. Snyder. I agree with the History, Examination, Assessment and Plan documented above with any addition or exceptions noted below. Out of hospital DNR has been completed by patient and I have signed this. The patient strongly wants to go home today with hospice. Palliative care is helping to arrange this. <Mariposa Mullins - Last Filed: 11/03/17 16:02>
[2017-11-03] MEDS: levETIRAcetam 500 MG TAB PO SCH (08:29)
[2017-11-03] MEDS: Enoxaparin Sodium 40 MG/0.4 ML SYRINGE SC SCH (08:29)
[2017-11-03] MEDS: Dexamethasone 4 MG TAB PO SCH ×2 (08:29→14:25)
[2017-11-03 16:50] VITALS: BP 110/67; TEMP 97.7
== END 2017-11-03 17:19 | disposition hospice, home (50) | DRG 100 ==
LOC: ERS 13:39 → T4-A 16:28
PROVIDERS: ADMIT Family Medicine; ATTEND Family Medicine
DX: R56.9 Unspecified convulsions (principal); G93.6 Cerebral edema; C71.9 Malignant neoplasm of brain, unspecified; R47.01 Aphasia; Z92.3 Personal history of irradiation; R53.1 Weakness; E78.5 Hyperlipidemia, unspecified; I10 Essential (primary) hypertension; F17.210 Nicotine dependence, cigarettes, uncomplicated; Z79.899 Other long term (current) drug therapy
CPT/HCPCS: 36415; 51701; 70450; 77336; 77386; 80053; 80306; 81003; 81015; 84146; 85025; 87086; 90471; 90670; 94760; 96365; 96375; A4353; G0009; G8978-GP-CM; G8979-GP-CK; G8996-GN-CJ; G8997-GN-CI; J1100; J1650; J1953; J8540

== ENCOUNTER 2017-12-14 14:28 | Outpatient (CLI) | payer MEDICARE ==
--- NOTE | 2017-12-14 15:45 | ULT ---
RIGHT LOWER EXTREMITY VENOUS DOPPLER: Date: 12/14/17 HISTORY: Pain and edema. COMPARISON: None. FINDINGS: Real-time [place] scale and color Doppler with spectral analysis of the right lower extremity venous sy stem was performed. Common femoral, femoral, proximal portions of greater saphenous and deep femoral veins, as well as the popliteal and posterior tibial veins are interrogated. There is a nonocclusive thrombus in the right popliteal and posterior tibial veins. Remainder of the veins have normal flow, augmentation, and compression. Mild lower extremity edema. IMPRESSION: Positive for deep venous thrombosis of the right popliteal and posterior tibial veins, nonocclusive. Dr. Ayaal notified of findings at 1518 hours. CODE CR. POS: [facility]
== END 2017-12-14 14:29 | disposition home or self-care (01) ==
LOC: ULT 14:28
PROVIDERS: ATTEND Internal Medicine Hematology & Oncology
DX: I82.431 Acute embolism and thrombosis of right popliteal vein (principal); I82.441 Acute embolism and thrombosis of right tibial vein; M79.604 Pain in right leg; R60.0 Localized edema; M79.89 Other specified soft tissue disorders

== ENCOUNTER 2018-01-09 03:43 | Emergency (ER) | payer MEDICARE ==
[2018-01-09] MEDS ORDERED: HYDROcodone/Acetaminophen 10/325 mg Tablet ONE (05:12)
--- NOTE | 2018-01-09 08:32 | RAD ---
CHEST 1 VIEW: Date: 01/09/18 HISTORY: Chest pain. COMPARISON: None. FINDINGS: Lungs without focal confluent air space consolidation, pneumothorax, or effusion. Cardiac silhouette and mediastinal contours are normal for portable technique. No acute osseous abnormality. IMPRESSION: No acute intrathoracic abnormality. POS: [facility]
== END 2018-01-09 07:33 | disposition home or self-care (01) ==
LOC: ERS 03:43
DX: S22.31XA Fracture of one rib, right side, initial encounter for closed fracture (principal); F41.9 Anxiety disorder, unspecified; F17.210 Nicotine dependence, cigarettes, uncomplicated; X50.1XXA Overexertion from prolonged static or awkward postures, initial encounter
CPT/HCPCS: 71045